=== PATIENT | male | born 1955 | race Caucasian/White ===

== ENCOUNTER 2016-08-28 15:36 | Inpatient (IN) | payer OTHER ==
[2016-08-28] MEDS ORDERED: SODIUM CHLORIDE 0.9% 1,000 ML IV STA (15:57)
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
[2016-08-28 17:03] LABS: Basophils % (A) 0 %; CH 32.6; CHCM 33.6; Eosinophils # (A) 0.1 k/uL (0-0.7); Eosinophils % (A) 3 %; HCT 42.6 % (39.0-53.0); HGB 14.1 gm/dL (13.0-17.5); Luc # (Auto) 0.15; Luc % (Auto) 3; Lymphocytes # (A) 0.9 k/uL (1.0-4.8); Lymphocytes % (A) 18 %; MCH 32.3 pg (25.0-35.0); MCHC 33.1 g/dL (31.0-37.0); MCV 97.7 fL (80.0-100.0); Mean Platelet Volume 7.6; Monocytes # (A) 0.4 k/uL (0-1.0); Monocytes % (A) 7 %; Neutrophils # (A) 3.5 k/uL (1.3-7.7); Neutrophils % (A) 68 %; RBC 4.37 m/uL (4.30-5.90); RDW 13.5 % (11.5-15.5); WBC 5.1 k/uL (3.8-10.6); WBC (Perox) 5.22
[2016-08-28 17:08] LABS: INR 1.1 (<1.1); Partial Thromboplastin Time 27.1 sec (22.0-30.0); Prothrombin Time 11.3 sec (9.0-12.0)
[2016-08-28 17:09] LABS: ALT 34 U/L (21-72); AST 37 U/L (17-59); Alkaline Phosphatase 95 U/L (38-126); Anion Gap 7 mmol/L; Blood Urea Nitrogen 17 mg/dL (9-20); Carbon Dioxide 32 mmol/L (22-30); Chloride 106 mmol/L (98-107); Glucose 92 mg/dL (74-99); Non-African American GFR(MDRD) >60 (>60 ml/min/1.73 sqM); Potassium 4.6 mmol/L (3.5-5.1); Sodium 145 mmol/L (137-145); Total Bilirubin 1.2 mg/dL (0.2-1.3); Total Protein 7.2 g/dL (6.3-8.2)
--- NOTE | 2016-08-28 17:26 | XR ---
EXAMINATION TYPE: XR chest 2V DATE OF EXAM: 08/28/2016 4:35 PM COMPARISON: Chest x-ray July 29, 2016. HISTORY: Difficulty breathing and cough for 6 days. TECHNIQUE: Frontal and lateral views of the chest are obtained. FINDINGS: There is chronic parenchymal change without suspicious focal air space opacity, pleural ef fusion, or pneumothorax seen. The cardiac silhouette size is within stable and mildly enlarged. Th e osseous structures are intact. IMPRESSION: Chronic emphysematous change and mild cardiomegaly without acute pulmonary process. No s ignificant change from prior.
[2016-08-28 17:33] LABS: Creatine Kinase MB 0.9 ng/mL (0.0-2.4)
[2016-08-28 17:37] LABS: Troponin I 0.041 ng/mL (0.000-0.034)
[2016-08-28] MEDS ORDERED: HEPARIN SODIUM,PORCINE 5,000 UNIT/ML 1 ML VIAL IV ONE (18:09)
[2016-08-28] MEDS: HEPARIN SODIUM,PORCINE/D5W PMX 25,000 UNIT in DEXTROSE/WATER 1 500ML.BAG IV SCH (18:18)
[2016-08-28] MEDS ORDERED: NALOXONE 0.4 MG/ML 1 ML VIAL IV PRN (18:31)
[2016-08-28] MEDS ORDERED: ALBUTEROL NEBULIZED 2.5 MG/3 ML INHALATION PRN (18:34)
[2016-08-28 20:11] LABS: Glucose,Whole Blood 88 mg/dL (75-99)
[2016-08-28] MEDS: SODIUM CHLORIDE 0.9% 1,000 ML IV SCH (20:21)
[2016-08-28] MEDS ORDERED: amLODIPine 5 MG TAB PO STA (20:57)
[2016-08-28] MEDS ORDERED: CARVEDILOL 12.5 MG TAB PO STA (20:59)
[2016-08-28 21:32] VITALS: BMI 51.1
[2016-08-28] MEDS: BECLOMETHASONE DIP 80 MCG/PUFF INHALER INHALATION SCH (22:07)
[2016-08-28] MEDS: ATORVASTATIN 40 MG TAB PO SCH (22:09)
[2016-08-28] MEDS: FAMOTIDINE 20 MG TAB PO SCH (22:09)
[2016-08-28] MEDS: TOPIRAMATE 100 MG TAB PO SCH (22:10)
[2016-08-28] MEDS: traZODone HCL 100 MG TAB PO SCH (22:10)
[2016-08-28] MEDS: SYMBICORT 160-4.5 MCG INHALER INHALATION SCH (22:12)
[2016-08-28] MEDS: HYDROcodone/APAP 7.5-325MG 1 EACH TAB PO SCH (22:16)
[2016-08-28] MEDS ORDERED: NITROGLYCERIN SL TABS 0.4 MG TAB SUBLINGUAL PRN (23:16)
[2016-08-28] MEDS ORDERED: ALPRAZolam 0.25 MG TAB PO PRN (23:16)
[2016-08-28] MEDS ORDERED: TEMAZEPAM 15 MG CAP PO PRN (23:16)
[2016-08-29] MEDS: FUROSEMIDE 10 MG/ML 4 ML VIAL IV SCH ×4 (00:15→23:26)
[2016-08-29 00:29] LABS: Creatine Kinase MB 0.8 ng/mL (0.0-2.4)
[2016-08-29 00:34] LABS: Troponin I 0.039 ng/mL (0.000-0.034)
[2016-08-29] MEDS: PANTOPRAZOLE 40 MG TABLET PO SCH ×2 (05:38→06:34)
[2016-08-29] MEDS: SODIUM CHLORIDE 0.9% 1,000 ML IV SCH ×2 (06:16→21:24)
[2016-08-29 06:19] LABS: Basophils % (A) 0 %; CHCM 33.5; Eosinophils # (A) 0.1 k/uL (0-0.7); Eosinophils % (A) 3 %; HCT 37.9 % (39.0-53.0); HDW 2.88; HGB 12.2 gm/dL (13.0-17.5); Luc # (Auto) 0.07; Luc % (Auto) 2; Lymphocytes % (A) 29 %; MCH 31.9 pg (25.0-35.0); MCHC 32.1 g/dL (31.0-37.0); MCV 99.2 fL (80.0-100.0); Mean Platelet Volume 8.6; Monocytes # (A) 0.2 k/uL (0-1.0); Monocytes % (A) 6 %; Neutrophils % (A) 59 %; RBC 3.82 m/uL (4.30-5.90); RDW 13.8 % (11.5-15.5); WBC 3.3 k/uL (3.8-10.6); WBC (Perox) 3.69
[2016-08-29 06:31] LABS: Anion Gap 9 mmol/L; Blood Urea Nitrogen 16 mg/dL (9-20); Calcium 8.1 mg/dL (8.4-10.2); Carbon Dioxide 27 mmol/L (22-30); Chloride 107 mmol/L (98-107); Glucose 111 mg/dL (74-99); Non-African American GFR(MDRD) >60 (>60 ml/min/1.73 sqM); Potassium 3.6 mmol/L (3.5-5.1); Sodium 143 mmol/L (137-145)
[2016-08-29] MEDS: HYDROcodone/APAP 7.5-325MG 1 EACH TAB PO SCH ×2 (06:33→21:30)
[2016-08-29] MEDS: CARVEDILOL 12.5 MG TAB PO SCH ×2 (06:34→17:18)
[2016-08-29 06:38] LABS: Glucose,Whole Blood 105 mg/dL (75-99)
[2016-08-29 06:42] LABS: Creatine Kinase MB 0.8 ng/mL (0.0-2.4); Troponin I 0.031 ng/mL (0.000-0.034)
[2016-08-29] MEDS: SYMBICORT 160-4.5 MCG INHALER INHALATION SCH ×2 (07:38→19:30)
[2016-08-29] MEDS: BECLOMETHASONE DIP 80 MCG/PUFF INHALER INHALATION SCH ×2 (07:38→19:31)
[2016-08-29] MEDS: metFORMIN 500 MG TAB PO SCH ×2 (08:23→17:18)
[2016-08-29] MEDS: CITALOPRAM HYDROBROMIDE 20 MG TAB PO SCH (08:29)
[2016-08-29] MEDS: amLODIPine 5 MG TAB PO SCH (08:29)
[2016-08-29] MEDS: ASPIRIN 81 MG CHEW PO SCH (08:29)
[2016-08-29] MEDS: FAMOTIDINE 20 MG TAB PO SCH ×2 (08:30→21:32)
[2016-08-29] MEDS: MULTIVITAMINS, THERA 1 EACH TAB PO SCH (08:30)
[2016-08-29] MEDS: LISINOPRIL-HCTZ 20-25 MG 1 EACH TAB PO SCH (08:30)
[2016-08-29] MEDS: ISOSORBIDE MONONITRATE ER 30 MG TAB.ER.24H PO SCH (08:30)
[2016-08-29] MEDS: SPIRONOLACTONE 25 MG TAB PO SCH (08:31)
[2016-08-29] MEDS ORDERED: NON-FORMULARY DRUG (Phentermine Hcl [Adipex-P] 37.5 MG) PO SCH (09:00)
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
[2016-08-29 11:41] LABS: Glucose,Whole Blood 114 mg/dL (75-99)
--- NOTE | 2016-08-29 12:25 | HP ---
DATE OF ADMISSION: CHIEF COMPLAINT: Shortness of breath. HISTORY OF PRESENT ILLNESS: This 60-year-old gentleman with a past history of multiple medical problems including congestive heart failure with chronic systolic dysfunction, history of coronary artery disease, history of COPD, diabetes mellitus, DVT, history of hypertension, history of hyperlipidemia, history of myocardial infarction, pulmonary embolism, cardiac catheterization, being followed by Dr. Guerrier in the outpatient setting, was admitted with shortness of breath. The patient had increased shortness of breath while lying down. There is no history of fever, rigors, chills. No history of headache, loss of consciousness, seizures. Some minimal chest discomfort also being complained of. The troponin is found to be 0.041. PAST MEDICAL HISTORY: History of CAD, history of COPD, diabetes mellitus type 2, DVT, hypertension, hyperlipidemia, history of myocardial infarction, history of pulmonary embolism. Medications prior to admission include: 1. Desyrel 200 mg p.o. q.h.s. 2. Glucophage 500 mg a.c. b.i.d. 3. Topamax 100 mg p.o. q.h.s. 4. Aldactone 25 mg p.o. daily. 5. Adipex-P 37.5 mg q.a.m. 6. Omeprazole 40 mg a.c. breakfast. 7. Nitrostat 0.5 q.5 p.r.n. 8. Multivitamins 1 p.o. daily. 9. Zestoretic 1 tablet p.o. daily. 10. Imdur 30 mg p.o. daily. 11. [place] 7.5 p.o. b.i.d. 12. Advair 500/50, 1 puff b.i.d. 13. Celexa 40 mg p.o. daily. 14. Coreg 2.5 mg b.i.d. 15. QVAR 1 puff b.i.d. 16. Lipitor 80 mg p.o. q.h.s. 17. Ecotrin 81 mg daily. 18. Albuterol 2 puffs q.4 p.r.n. ALLERGIES: CODEINE AND IODINATED CONTRAST DYE. FAMILY HISTORY: History of cancer. SOCIAL HISTORY: History of alcohol intake. History of previous smoking. REVIEW OF SYSTEMS: ENT: Diminished hearing, diminished vision. CARDIOVASCULAR: As mentioned earlier. RESPIRATORY: As mentioned earlier. GI: No nausea. : No dysuria. NERVOUS SYSTEM: No numbness or weakness. ALLERGY/IMMUNOLOGY: No asthma or hayfever. MUSCULOSKELETAL: As mentioned earlier. HEMATOLOGY: No history of anemia. ENDOCRINE: As mentioned earlier. CONSTITUTIONAL: As mentioned earlier. DERMATOLOGY: Negative. RHEUMATOLOGY: Negative. PSYCHIATRY: As mentioned earlier. PHYSICAL EXAMINATION: Patient is alert and oriented x3. Pulse 93, blood pressure 179/85, respirations 18, temperature 98.8, pulse ox 90% on 2-L. HEENT: Conjunctivae normal. NECK: No jugular venous distention. CARDIOVASCULAR: S1 and S2, muffled. RESPIRATORY: Breath sounds diminished at the bases. Bilateral scattered rhonchi and crackles. ABDOMEN: Soft, obese, nontender. No mass palpable. LEGS: No edema, no swelling. NERVOUS SYSTEM: Higher function as mentioned. Moves all four limbs. No focal motor deficits. LYMPHATIC: No lymphadenopathy in the neck, axillae or groin. SKIN: No ulcer, rash or bleeding. LABS: Platelets are 93. Otherwise, CO2 is 32. Troponin 0.041. ASSESSMENT: 1. Congestive heart failure acute exacerbation, acute on chronic systolic dysfunction, ejection fraction 35 to 40% with ischemic cardiomyopathy. 2. Thrombocytopenia. 3. Troponin 0.041, indeterminate. 4. History of coronary artery disease. 5. History of chronic obstructive pulmonary disease. 6. History of diabetes mellitus type 2. 7. History of deep venous thrombosis. 8. Hyperlipidemia. 9. Hypertension. 10. History of myocardial infarction. 11. History of pulmonary embolus. 12. History of bilateral knee fracture. 13. History of adenoidectomy. 14. History of cardiac catheterization. 15. History of attention deficit disorder, attention deficit hyperactivity disorder. 16. History of depression. 17. History of obsessive compulsive disorder. 18. Remote history of nicotine dependence. 19. Obesity with body mass index of 51.1. 20. FULL CODE. RECOMMENDATIONS AND DISCUSSION: In this 60-year-old gentleman who presented with multiple complex medical issues, we will monitor the patient closely. Continue the current medications, continue with symptomatic treatment. Otherwise, at this time I would recommend continue with current medications. Monitor closely. I recommend IV diuretics and cardiology consultation. Guarded prognosis because of multiple complex medical issues. Further recommendations to follow. A copy of dictation forwarded to Dr. Juan Diego Guerrier who is the primary physician.
[2016-08-29 16:42] LABS: Glucose,Whole Blood 110 mg/dL (75-99)
[2016-08-29] MEDS: HEPARIN SODIUM,PORCINE/D5W PMX 25,000 UNIT in DEXTROSE/WATER 1 500ML.BAG IV SCH (17:18)
[2016-08-29 20:57] LABS: Glucose,Whole Blood 124 mg/dL (75-99)
[2016-08-29] MEDS: traZODone HCL 100 MG TAB PO SCH (21:30)
[2016-08-29] MEDS: ATORVASTATIN 40 MG TAB PO SCH (21:32)
[2016-08-29] MEDS: TOPIRAMATE 100 MG TAB PO SCH (21:32)
[2016-08-30] MEDS: SODIUM CHLORIDE 0.9% 1,000 ML IV SCH ×2 (02:52→17:12)
[2016-08-30 06:43] LABS: Basophils % (A) 1 %; CH 32.8; CHCM 33.6; Eosinophils # (A) 0.1 k/uL (0-0.7); Eosinophils % (A) 3 %; HCT 36.9 % (39.0-53.0); HDW 2.82; Luc # (Auto) 0.08; Luc % (Auto) 2; Lymphocytes % (A) 29 %; MCH 31.9 pg (25.0-35.0); MCHC 32.4 g/dL (31.0-37.0); MCV 98.4 fL (80.0-100.0); Mean Platelet Volume 8.9; Monocytes # (A) 0.3 k/uL (0-1.0); Monocytes % (A) 8 %; Neutrophils # (A) 2.1 k/uL (1.3-7.7); Neutrophils % (A) 58 %; RBC 3.75 m/uL (4.30-5.90); RDW 13.6 % (11.5-15.5); WBC 3.6 k/uL (3.8-10.6); WBC (Perox) 3.82
[2016-08-30] MEDS: PANTOPRAZOLE 40 MG TABLET PO SCH ×2 (06:45→06:46)
[2016-08-30] MEDS: CARVEDILOL 12.5 MG TAB PO SCH ×2 (06:46→17:11)
[2016-08-30] MEDS: metFORMIN 500 MG TAB PO SCH ×2 (06:46→17:12)
[2016-08-30 07:12] LABS: Glucose,Whole Blood 109 mg/dL (75-99)
[2016-08-30 07:20] LABS: Calcium 8.4 mg/dL (8.4-10.2); Potassium 3.2 mmol/L (3.5-5.1)
[2016-08-30] MEDS: BECLOMETHASONE DIP 80 MCG/PUFF INHALER INHALATION SCH ×2 (08:17→19:15)
[2016-08-30] MEDS: SYMBICORT 160-4.5 MCG INHALER INHALATION SCH ×2 (08:17→19:15)
[2016-08-30] MEDS: SPIRONOLACTONE 25 MG TAB PO SCH (08:58)
[2016-08-30] MEDS: amLODIPine 5 MG TAB PO SCH (08:58)
[2016-08-30] MEDS: FAMOTIDINE 20 MG TAB PO SCH (08:59)
[2016-08-30] MEDS: MULTIVITAMINS, THERA 1 EACH TAB PO SCH (08:59)
[2016-08-30] MEDS: CITALOPRAM HYDROBROMIDE 20 MG TAB PO SCH (08:59)
[2016-08-30] MEDS: ASPIRIN 81 MG CHEW PO SCH (08:59)
[2016-08-30] MEDS: FUROSEMIDE 10 MG/ML 4 ML VIAL IV SCH (08:59)
[2016-08-30] MEDS: ISOSORBIDE MONONITRATE ER 30 MG TAB.ER.24H PO SCH (09:00)
[2016-08-30] MEDS: LISINOPRIL-HCTZ 20-25 MG 1 EACH TAB PO SCH (09:00)
[2016-08-30] MEDS: HYDROcodone/APAP 7.5-325MG 1 EACH TAB PO SCH ×2 (12:33→23:14)
--- NOTE | 2016-08-30 12:37 | P.PN ---
Subjective This is a pleasant 60-year-old gentleman with a past medical history significant for morbid obesity, diabetes, hypertension, COPD, hyperlipidemia, prior PE and DVT, cardiomyopathy documented on an echocardiogram was performed in July 2016 and showed an EF of 35%, presented to the hospital complaining of progressive dyspnea. Asked x-ray on admission revealed chronic emphysema change and mild cardiomegaly without acute pulmonary process. BNP level on admission 1210. Troponins 0.04, 0.03, 0.03. The patient has been diuresing well on IV Lasix, his weight today is down 3 kg from admission. Creatinine 1.6 today, up from 1.0 yesterday. Potassium 3.2. Patient states he does feel that his breathing is improving, still has some pain in his chest when he coughs only. Objective - Vital Signs Vital signs: Vital Signs Temp 97.1 F L 08/30/16 02:49 Pulse 57 L 08/30/16 11:47 Resp 18 08/30/16 11:47 BP 107/51 08/30/16 11:47 Pulse Ox 92 L 08/30/16 11:47 Intake & Output 08/29/16 08/30/16 08/30/16 18:59 06:59 18:59 Intake Total 726.333 430 Output Total 800 750 500 Balance -73.667 -750 -70 Weight 166.4 kg Intake: IV 50 Heparin Sodium,Porcine/ 50 D5w Pmx 25,000 unit In Dextrose/Water 1 500ml. bag @ 5.96 UNITS/KG/HR 20 mls/hr IV .Q24H [facility] Rx#: [id number] Intake, IV Titration 250.333 20 Amount Heparin Sodium,Porcine/ 250.333 D5w Pmx 25,000 unit In Dextrose/Water 1 500ml. bag @ 5.96 UNITS/KG/HR 20 mls/hr IV .Q24H [facility] Rx#: [id number] Sodium Chloride 0.9% 1, 20 000 ml @ 10 mls/hr IV . Q24H [facility] Rx#:[id number] Oral 476 360 Output: Urine 800 750 500 Other: Voiding Method Toilet Toilet Urinal # Voids 1 - Exam PHYSICAL EXAMINATION: HEENT: Head is atraumatic, normocephalic. Pupils equal, round. Neck is supple. There is no elevated jugular venous pressure. HEART EXAMINATION: Heart S1, S2 normal. No murmur or gallop heard. CHEST EXAMINATION: Lungs reveal diminished air entry to bilateral bases. ABDOMEN: Soft, obese, nontender. Bowel sounds are heard. No organomegaly noted. EXTREMITIES: 2+ peripheral pulses with trace evidence of peripheral edema and no calf tenderness noted. NEUROLOGIC patient is awake, alert and oriented -3. . - Labs CBC & Chem 7: 08/30/16 06:21 08/30/16 06:21 Labs: Abnormal Lab Results - Last 24 Hours (Table) 08/29/16 08/29/16 08/29/16 Range/Units 12:30 16:41 20:44 WBC (3.8-10.6) k/uL RBC (4.30-5.90) m/uL Hgb (13.0-17.5) gm/dL Hct (39.0-53.0) % Plt Count (150-450) k/uL APTT 58.0 H (22.0-30.0) sec Potassium (3.5-5.1) mmol/L Carbon Dioxide (22-30) mmol/L Creatinine (0.66-1.25) mg/dL Glucose (74-99) mg/dL POC Glucose (mg/dL) 110 H 124 H (75-99) mg/dL 08/30/16 08/30/16 08/30/16 Range/Units 06:21 06:21 06:21 WBC 3.6 L (3.8-10.6) k/uL RBC 3.75 L (4.30-5.90) m/uL Hgb 12.0 L (13.0-17.5) gm/dL Hct 36.9 L (39.0-53.0) % Plt Count 69 L (150-450) k/uL APTT 72.9 H (22.0-30.0) sec Potassium 3.2 L (3.5-5.1) mmol/L Carbon Dioxide 31 H (22-30) mmol/L Creatinine 1.60 H (0.66-1.25) mg/dL Glucose 112 H (74-99) mg/dL POC Glucose (mg/dL) (75-99) mg/dL 08/30/16 Range/Units 06:33 WBC (3.8-10.6) k/uL RBC (4.30-5.90) m/uL Hgb (13.0-17.5) gm/dL Hct (39.0-53.0) % Plt Count (150-450) k/uL APTT (22.0-30.0) sec Potassium (3.5-5.1) mmol/L Carbon Dioxide (22-30) mmol/L Creatinine (0.66-1.25) mg/dL Glucose (74-99) mg/dL POC Glucose (mg/dL) 109 H (75-99) mg/dL Assessment and Plan (1) Systolic CHF, acute on chronic Status: Acute (2) Atypical chest pain Status: Acute (3) Diabetes Status: Acute (4) Elevated troponin I level Status: Acute (5) HTN (hypertension) Status: Acute (6) NICM (nonischemic cardiomyopathy) Status: Acute (7) COPD (chronic obstructive pulmonary disease) Status: Chronic (8) Diabetes Status: Chronic (9) HTN (hypertension) Status: Chronic (10) Hyperlipemia Status: Chronic (11) LBBB (left bundle branch block) Status: Chronic Plan: From cardiology's perspective, we'll discontinue the IV heparin today. Replace the patient's potassium. Discontinue IV Lasix after his second dose today and start him on oral diuretics. Check lytes BUN and creatinine in the morning. DNP note has been reviewed, I agree with a documented findings and plan of care. Patient was seen and examined.
[2016-08-30] MEDS: POTASSIUM CHLORIDE ER 20 MEQ TAB.ER PO SCH ×3 (13:34→17:12)
--- NOTE | 2016-08-30 16:32 | PN ---
DATE OF SERVICE: 08/29/2016 This 60-year-old gentleman who was admitted with shortness of breath and CHF, acute exacerbation, is being closely monitored. No chest pain. No palpitation. No fever. On exam, alert and oriented x3. Pulse 73, blood pressure 124/55, respiration 17, temperature 97.4, pulse ox 93% on 2 L. HEENT: Conjunctivae normal. NECK: No jugular venous distention. CARDIOVASCULAR SYSTEM: S1, S2 muffled. RESPIRATORY SYSTEM: Breath sounds diminished at the bases. Bilateral scattered rhonchi and crackles. ABDOMEN: Soft, obese, nontender. LEGS: No edema. No swelling. NERVOUS SYSTEM: No focal deficit. LABS: WBC 3.3, hemoglobin 12.2, platelets 69. Accu-Cheks are noted. APTT noted. ASSESSMENT: 1. Congestive heart failure, acute exacerbation, with acute on chronic systolic dysfunction, ejection fraction 35% to 40%, ischemic cardiomyopathy. 2. Thrombocytopenia. 3. Troponin 0.041, indeterminate. 4. History of coronary artery disease. 5. Chronic obstructive pulmonary disease. 6. Diabetes mellitus, type 2. 7. History of deep venous thrombosis. 8. Hyperlipidemia. 9. Hypertension. 10. History of myocardial infarction. 11. History of pulmonary embolism. 12. Bilateral knee fracture. 13. History of adenoidectomy. 14. History of cardiac catheterization. 15. History of attention deficit disorder, attention deficit hyperactivity disorder. 16. History of depression. 17. Obsessive-compulsive disorder. 18. Remote history of nicotine dependence. 19. Obesity with a body mass index of 51.1. 20. FULL CODE. RECOMMENDATIONS AND DISCUSSION: I recommend to continue with the current medications, continue with the diuretics, continue with the rest of the medications. Otherwise, closely monitor with Cardiology. Guarded prognosis. Further recommendations to follow. Discussed with the patient. Prognosis guarded.
[2016-08-30] MEDS: FUROSEMIDE 40 MG TAB PO SCH (17:12)
--- NOTE | 2016-08-30 20:20 | P.PN ---
Subjective Principal diagnosis: sonia 60-year-old gentleman with history of systolic heart failure with EF of around 35% is admitted to the hospital with difficulty breathing and lower extremity edema. Patient's underlying etiology for heart failure is not coronary artery disease. Patient was started on diuretics. Patient improved significantly over the course of hospitalization. Today patient states that he is able to lay flat, denies having any chest pain, difficulty breathing. Patient does continue to have some lower extremity edema however states is significantly improved. This a.m. patient's creatinine has increased to 1.6 from his baseline of 1. Objective - Vital Signs Vital signs: Vital Signs Temp 97.3 F L 08/30/16 16:00 Pulse 53 L 08/30/16 16:00 Resp 18 08/30/16 16:00 BP 107/53 08/30/16 16:00 Pulse Ox 95 08/30/16 16:00 Intake & Output 08/30/16 08/30/16 08/31/16 06:59 18:59 06:59 Intake Total 660 Output Total 750 500 Balance -750 160 Weight 166.4 kg Intake: IV 50 Heparin Sodium,Porcine/ 50 D5w Pmx 25,000 unit In Dextrose/Water 1 500ml. bag @ 5.96 UNITS/KG/HR 20 mls/hr IV .Q24H [facility] Rx#: [id number] Intake, IV Titration 20 Amount Sodium Chloride 0.9% 1, 20 000 ml @ 10 mls/hr IV . Q24H [facility] Rx#:[id number] Oral 590 Output: Urine 750 500 Other: Voiding Method Toilet Urinal # Voids 1 300 - Exam Gen. appearance oriented 3 does not appear to be in distress neck is supple no JVD does have a Mallampati score 4 Lungs good air entry clear to auscultation no crackles appreciated Heart regular rate and rhythm no murmurs appreciated Abdomen is soft nontender organomegaly Lower ext 1+ pitting edema noted. Neurologically no focal motor or sensory deficits appreciated. Cranial nerves to till 12 grossly intact. - Labs CBC & Chem 7: 08/30/16 06:21 08/30/16 06:21 Labs: Abnormal Lab Results - Last 24 Hours (Table) 08/29/16 08/30/16 08/30/16 Range/Units 20:44 06:21 06:21 WBC 3.6 L (3.8-10.6) k/uL RBC 3.75 L (4.30-5.90) m/uL Hgb 12.0 L (13.0-17.5) gm/dL Hct 36.9 L (39.0-53.0) % Plt Count 69 L (150-450) k/uL APTT (22.0-30.0) sec Potassium 3.2 L (3.5-5.1) mmol/L Carbon Dioxide 31 H (22-30) mmol/L Creatinine 1.60 H (0.66-1.25) mg/dL Glucose 112 H (74-99) mg/dL POC Glucose (mg/dL) 124 H (75-99) mg/dL 08/30/16 08/30/16 Range/Units 06:21 06:33 WBC (3.8-10.6) k/uL RBC (4.30-5.90) m/uL Hgb (13.0-17.5) gm/dL Hct (39.0-53.0) % Plt Count (150-450) k/uL APTT 72.9 H (22.0-30.0) sec Potassium (3.5-5.1) mmol/L Carbon Dioxide (22-30) mmol/L Creatinine (0.66-1.25) mg/dL Glucose (74-99) mg/dL POC Glucose (mg/dL) 109 H (75-99) mg/dL Assessment and Plan Plan: #1 acute exacerbation of systolic heart failure #2 history of hypertension #3 obesity #4 clinical sleep apnea #5 acute kidney injury secondary to cardiorenal syndrome and diuretic use #6 COPD that is stable Plan Repeat BUN/creatinine the morning. Likely be able to discharge patient in the 24 hours. Patient's hydrochlorothiazide should likely be discontinued. Patient should be maintained on spironolactone and Lasix. Repeat potassium level as well. Patient should have outpatient sleep study. We'll refer to Dr. Salazar on discharge. The pressure stable.
[2016-08-30] MEDS: ATORVASTATIN 40 MG TAB PO SCH (23:14)
[2016-08-30] MEDS: traZODone HCL 100 MG TAB PO SCH (23:14)
[2016-08-30] MEDS: TOPIRAMATE 100 MG TAB PO SCH (23:14)
[2016-08-31] MEDS: PANTOPRAZOLE 40 MG TABLET PO SCH (06:56)
[2016-08-31] MEDS: metFORMIN 500 MG TAB PO SCH (06:56)
[2016-08-31] MEDS: CARVEDILOL 12.5 MG TAB PO SCH (06:56)
[2016-08-31 07:35] LABS: Basophils % (A) 0 %; CH 32.8; CHCM 33.4; Eosinophils # (A) 0.1 k/uL (0-0.7); Eosinophils % (A) 3 %; HCT 38.2 % (39.0-53.0); HDW 2.89; HGB 12.5 gm/dL (13.0-17.5); Luc % (Auto) 3; Lymphocytes # (A) 0.8 k/uL (1.0-4.8); Lymphocytes % (A) 21 %; MCH 32.3 pg (25.0-35.0); MCHC 32.7 g/dL (31.0-37.0); MCV 98.7 fL (80.0-100.0); Mean Platelet Volume 8.8; Monocytes # (A) 0.3 k/uL (0-1.0); Monocytes % (A) 9 %; Neutrophils # (A) 2.5 k/uL (1.3-7.7); Neutrophils % (A) 65 %; RBC 3.87 m/uL (4.30-5.90); RDW 13.8 % (11.5-15.5); WBC 3.8 k/uL (3.8-10.6)
[2016-08-31 07:40] LABS: Calcium 8.7 mg/dL (8.4-10.2); Potassium 3.7 mmol/L (3.5-5.1)
[2016-08-31 08:08] VITALS: RESP 16
[2016-08-31] MEDS: HYDROcodone/APAP 7.5-325MG 1 EACH TAB PO SCH (08:12)
[2016-08-31] MEDS: FUROSEMIDE 40 MG TAB PO SCH (08:14)
[2016-08-31] MEDS: CITALOPRAM HYDROBROMIDE 20 MG TAB PO SCH (08:14)
[2016-08-31] MEDS: ASPIRIN 81 MG CHEW PO SCH (08:14)
[2016-08-31] MEDS: LISINOPRIL-HCTZ 20-25 MG 1 EACH TAB PO SCH (08:15)
[2016-08-31] MEDS: MULTIVITAMINS, THERA 1 EACH TAB PO SCH (08:15)
[2016-08-31] MEDS: ISOSORBIDE MONONITRATE ER 30 MG TAB.ER.24H PO SCH (08:15)
[2016-08-31] MEDS: SPIRONOLACTONE 25 MG TAB PO SCH (08:16)
[2016-08-31] MEDS: BECLOMETHASONE DIP 80 MCG/PUFF INHALER INHALATION SCH (08:39)
[2016-08-31] MEDS: SYMBICORT 160-4.5 MCG INHALER INHALATION SCH (08:39)
--- NOTE | 2016-08-31 11:26 | P.PN ---
Subjective This is a pleasant 60-year-old gentleman with a past medical history significant for morbid obesity, diabetes, hypertension, COPD, hyperlipidemia, prior PE and DVT, cardiomyopathy documented on an echocardiogram was performed in July 2016 and showed an EF of 35%, presented to the hospital complaining of progressive dyspnea. Chest x-ray on admission revealed chronic emphysema change and mild cardiomegaly without acute pulmonary process. BNP level on admission 1210. Troponins 0.04, 0.03, 0.03. Patient was diuresed with IV Lasix on admission here, this was changed over to oral diuretics yesterday. He was seen and examined this morning, overall breathing is much improved. Blood pressure 128/58, heart rate in the 60s, afebrile. Hemoglobin 12.5, BUN 25, creatinine 1.8. Objective - Vital Signs Vital signs: Vital Signs Temp 97.4 F L 08/31/16 08:00 Pulse 65 08/31/16 08:00 Resp 16 08/31/16 08:00 BP 129/58 08/31/16 08:00 Pulse Ox 91 L 08/31/16 08:00 Intake & Output 08/30/16 08/31/16 08/31/16 18:59 06:59 18:59 Intake Total 660 0 Output Total 500 925 Balance 160 -925 Weight 166.9 kg Intake: IV 50 Heparin Sodium,Porcine/ 50 D5w Pmx 25,000 unit In Dextrose/Water 1 500ml. bag @ 5.96 UNITS/KG/HR 20 mls/hr IV .Q24H [facility] Rx#: [id number] Intake, IV Titration 20 Amount Sodium Chloride 0.9% 1, 20 000 ml @ 10 mls/hr IV . Q24H [facility] Rx#:[id number] Oral 590 0 Output: Urine 500 925 Other: # Voids 300 - Exam PHYSICAL EXAMINATION: HEENT: Head is atraumatic, normocephalic. Pupils equal, round. Neck is supple. There is no elevated jugular venous pressure. HEART EXAMINATION: Heart S1, S2 normal. No murmur or gallop heard. CHEST EXAMINATION: Lungs reveal diminished air entry to bilateral bases. ABDOMEN: Soft, obese, nontender. Bowel sounds are heard. No organomegaly noted. EXTREMITIES: 2+ peripheral pulses with trace evidence of peripheral edema and no calf tenderness noted. NEUROLOGIC patient is awake, alert and oriented -3. . - Labs CBC & Chem 7: 08/31/16 06:58 08/31/16 06:56 Labs: Abnormal Lab Results - Last 24 Hours (Table) 08/31/16 08/31/16 Range/Units 06:56 06:58 RBC 3.87 L (4.30-5.90) m/uL Hgb 12.5 L (13.0-17.5) gm/dL Hct 38.2 L (39.0-53.0) % Plt Count 72 L (150-450) k/uL Lymphocytes # 0.8 L (1.0-4.8) k/uL Carbon Dioxide 32 H (22-30) mmol/L BUN 25 H (9-20) mg/dL Creatinine 1.80 H (0.66-1.25) mg/dL Glucose 112 H (74-99) mg/dL Assessment and Plan (1) Systolic CHF, acute on chronic Status: Acute (2) Atypical chest pain Status: Acute (3) Diabetes Status: Acute (4) Elevated troponin I level Status: Acute (5) HTN (hypertension) Status: Acute (6) NICM (nonischemic cardiomyopathy) Status: Acute (7) COPD (chronic obstructive pulmonary disease) Status: Chronic (8) Diabetes Status: Chronic (9) HTN (hypertension) Status: Chronic (10) Hyperlipemia Status: Chronic (11) LBBB (left bundle branch block) Status: Chronic Plan: From cardiology's perspective, patient may be able to be discharged home once her by the primary. We will make him a follow-up appointment to see Dr. VC Hirsch in the office post discharge. Obtain lytes BUN and creatinine in one week. DNP note has been reviewed, I agree with a documented findings and plan of care. Patient was seen and examined.
[2016-08-31] MEDS: amLODIPine 5 MG TAB PO SCH (12:42)
[2016-08-31 12:47] VITALS: BP 103/58; PULSE 54; TEMP 97.6
--- NOTE | 2016-08-31 22:01 | P.DS ---
Providers Date of admission: 08/28/16 18:31 Expected date of discharge: 08/31/16 Attending physician: Jerri Mckeon Primary care physician: Cas Fareed [facility] Hospital Course: sonia 60-year-old gentleman with history of systolic heart failure with EF of around 35% is admitted to the hospital with difficulty breathing and lower extremity edema. Patient's underlying etiology for heart failure is not coronary artery disease. Patient was started on diuretics. Patient improved significantly over the course of hospitalization. Today patient states that he is able to lay flat, denies having any chest pain, difficulty breathing. Patient does continue to have some lower extremity edema however states is significantly improved. On the day of discharge. Pt improved. was making urine, denies any new complaints. - Exam Gen. appearance oriented 3 does not appear to be in distress neck is supple no JVD does have a Mallampati score 4 Lungs good air entry clear to auscultation no crackles appreciated Heart regular rate and rhythm no murmurs appreciated Abdomen is soft nontender organomegaly Lower ext 1+ pitting edema noted. Neurologically no focal motor or sensory deficits appreciated. Cranial nerves to till 12 grossly intact. Assessment and Plan Plan: #1 acute exacerbation of systolic heart failure #2 history of hypertension #3 obesity #4 clinical sleep apnea #5 acute kidney injury secondary to cardiorenal syndrome and diuretic use #6 COPD that is stable CR did worsen, however, will likely yoshi, discontinued spirinolactone and HCTZ. repeat renal function in 3-4 days. f/u with Dr Hirsch for adjustment of medications Refer to Dr kwan for sleep study. Patient Condition at Discharge: Stable Plan - Discharge Summary New Discharge Prescriptions: Atorvastatin [Lipitor] 40 mg PO HS #30 tab Beclomethasone Dipropionate [Qvar 80 mcg] 1 puff INHALATION RT-BID #1 aer.w.adap Carvedilol [Coreg*] 12.5 mg PO BID-W/MEALS #60 tab Citalopram Hydrobromide [CeleXA] 40 mg PO DAILY #30 tablet Furosemide [Lasix] 40 mg PO BID@0900,1600 #60 tab Lisinopril [Zestril] 5 mg PO DAILY #30 tab Nitroglycerin Sl Tabs [Nitrostat] 0.4 mg SUBLINGUAL Q5M PRN #25 tab PRN Reason: Chest Pain Pantoprazole [Protonix] 40 mg PO AC-BRKFST #30 tablet. Potassium Chloride ER [K-Dur 20] 20 meq PO BID #60 tab.er.prt Topiramate [Topamax] 100 mg PO HS #30 tab amLODIPine [Norvasc] 5 mg PO DAILY #30 tab traZODone HCL [Desyrel] 200 mg PO HS #30 tab Discharge Medication List Fluticasone/Salmeterol [Advair 500-50 Diskus] 1 puff INHALATION RT-BID 10/22/14 [History] Aspirin EC [Ecotrin Low Dose] 81 mg PO DAILY #30 tablet. 08/06/15 [Rx] Multivitamins, Thera [Multivitamin] 1 tab PO DAILY 09/15/15 [History] HYDROcodone/APAP 7.5-325MG [[place] 7.5-325] 1 tab PO Q12H 02/24/16 [History] Furosemide [Lasix] 40 mg PO BID@0900,1600 #60 tab 08/30/16 [Rx] Lisinopril [Zestril] 5 mg PO DAILY #30 tab 08/30/16 [Rx] Potassium Chloride ER [K-Dur 20] 20 meq PO BID #60 tab.er.prt 08/30/16 [Rx] amLODIPine [Norvasc] 5 mg PO DAILY #30 tab 08/30/16 [Rx] Atorvastatin [Lipitor] 40 mg PO HS #30 tab 08/31/16 [Rx] Beclomethasone Dipropionate [Qvar 80 mcg] 1 puff INHALATION RT-BID #1 aer.w.adap 08/31/16 [Rx] Carvedilol [Coreg*] 12.5 mg PO BID-W/MEALS #60 tab 08/31/16 [Rx] Citalopram Hydrobromide [CeleXA] 40 mg PO DAILY #30 tablet 08/31/16 [Rx] Nitroglycerin Sl Tabs [Nitrostat] 0.4 mg SUBLINGUAL Q5M PRN #25 tab 08/31/16 [Rx ] Pantoprazole [Protonix] 40 mg PO AC-BRKFST #30 tablet. 08/31/16 [Rx] Topiramate [Topamax] 100 mg PO HS #30 tab 08/31/16 [Rx] traZODone HCL [Desyrel] 200 mg PO HS #30 tab 08/31/16 [Rx] Follow up Appointment(s)/Referral(s): [facility], [NON-STAFF] - Cas Guerrier MD [Primary Care Provider] - 09/03/16 4:30 pm Giovanni Kwan MD [STAFF PHYSICIAN] - 09/29/16 2:30 pm Kavya Hirsch MD [STAFF PHYSICIAN] - 09/09/16 4:15 pm Ambulatory/Diagnostic Orders: Basic Metabolic Panel [LAB.AMB] Time Frame: 3 Days, Location: Determined By Patient Complete Blood Count w/diff [LAB.AMB] Location: Determined By Patient Patient Instructions/Handouts: Heart Failure (DC) Discharge Disposition: HOME SELF-CARE
== END 2016-08-31 15:06 | disposition home health service (06) | DRG 292 ==
LOC: EC 15:36 → 6ICU 18:31 → 6SEL 08-29 00:26
PROVIDERS: ADMIT Hospitalist; ATTEND Hospitalist
DX: I11.0 Hypertensive heart disease with heart failure (principal); N17.9 Acute kidney failure, unspecified; E11.22 Type 2 diabetes mellitus with diabetic chronic kidney disease; D69.6 Thrombocytopenia, unspecified; E11.40 Type 2 diabetes mellitus with diabetic neuropathy, unspecified; I50.23 Acute on chronic systolic (congestive) heart failure; E66.01 Morbid (severe) obesity due to excess calories; E78.5 Hyperlipidemia, unspecified; F42.9 Obsessive-compulsive disorder, unspecified; F90.9 Attention-deficit hyperactivity disorder, unspecified type; G47.30 Sleep apnea, unspecified; I25.2 Old myocardial infarction; I25.5 Ischemic cardiomyopathy; I44.7 Left bundle-branch block, unspecified; N18.9 Chronic kidney disease, unspecified; F32.9 Major depressive disorder, single episode, unspecified; I25.10 Atherosclerotic heart disease of native coronary artery without angina pectoris; J44.9 Chronic obstructive pulmonary disease, unspecified; J45.909 Unspecified asthma, uncomplicated; R07.89 Other chest pain; T50.2X5A Adverse effect of carbonic-anhydrase inhibitors, benzothiadiazides and other diuretics, initial encounter; Z68.43 Body mass index [BMI] 50.0-59.9, adult; Z87.891 Personal history of nicotine dependence; Z79.82 Long term (current) use of aspirin; Z79.84 Long term (current) use of oral hypoglycemic drugs; Z79.899 Other long term (current) drug therapy; Z88.5 Allergy status to narcotic agent; Z91.041 Radiographic dye allergy status; Z82.49 Family history of ischemic heart disease and other diseases of the circulatory system
CPT/HCPCS: 36415; 71020; 80048; 80053; 82550; 82553; 83880; 84484; 85025; 85610; 85730; 87040; 93005; 94640; 96361; 96365; 96366; 96376; 99285